=== PATIENT | female | born 2000 | race Caucasian/White ===

== ENCOUNTER → 2020-01-12 | Outpatient (CLI) | payer BC ==
[2020-01-12 15:29] LABS: HCT 43.7 % (34.0-46.0); HGB 14.4 gm/dL (11.4-16.0); MCH 28.9 pg (25.0-35.0); MCV 87.3 fL (80.0-100.0); Mean Platelet Volume 11.7; Platelet Count 207 k/uL (150-450); RDW 13.9 % (11.5-15.5); WBC 4.5 k/uL (3.8-10.6)
== END | disposition home or self-care (01) ==
LOC: LABWHC1 14:19
DX: Z51.81 Encounter for therapeutic drug level monitoring (principal); Z79.899 Other long term (current) drug therapy
CPT/HCPCS: 36415; 82670; 84403; 85027